=== PATIENT | male | born 1995 | race Two or more races ===

== ENCOUNTER 2017-09-25 06:52 | Day surgery (SDC) | payer OTHER ==
[~2017-09-25] VITALS: Ht 182.9 cm; Wt 104.3 kg
[2017-09-25] MEDS ORDERED: BUPIVACAINE-MPF/EPI 0.5% 30 ML VIAL INJ ONE (08:43)
[2017-09-25] MEDS ORDERED: MIDAZOLAM 2 MG/2 ML VIAL ONE (10:15)
[2017-09-25] MEDS ORDERED: KETAMINE 500 MG/5 ML VIAL ONE (10:15)
[2017-09-25] MEDS ORDERED: MORPHINE SULFATE 4 MG/ML SYR IV PRN (11:10)
[2017-09-25] MEDS ORDERED: ONDANSETRON 4 MG/2 ML VIAL IV PRN (11:10)
[2017-09-25] MEDS ORDERED: HYDROcodone/APAP 5/325 MG 1 TAB TAB PO PRN (11:10)
[2017-09-25] MEDS ORDERED: NACL 0.9% 1,000 ML IV SCH (11:10)
[2017-09-25] MEDS ORDERED: ACETAMINOPHEN 325 MG TAB PO PRN (11:10)
[2017-09-25] MEDS ORDERED: HYDROmorphone 1 MG/ML AMP IVP PRN (11:10)
[2017-09-25] MEDS ORDERED: MORPHINE SULFATE 2 MG/ML SYR IVP PRN (11:10)
== END 2017-09-25 13:00 | disposition home or self-care (01) ==
LOC: MOR 06:52 → MMU 06:53 → MOR 13:00
PROVIDERS: ATTEND Surgery
DX: L05.91 Pilonidal cyst without abscess (principal); I10 Essential (primary) hypertension; E11.9 Type 2 diabetes mellitus without complications; J45.909 Unspecified asthma, uncomplicated; K21.9 Gastro-esophageal reflux disease without esophagitis; E66.3 Overweight; G40.909 Epilepsy, unspecified, not intractable, without status epilepticus; M19.90 Unspecified osteoarthritis, unspecified site; I25.10 Atherosclerotic heart disease of native coronary artery without angina pectoris; D64.9 Anemia, unspecified; Z99.81 Dependence on supplemental oxygen
CPT/HCPCS: 11770; 71045; 88304; J0690; J2250; J3490; J7060; J7120